=== PATIENT | female | born 1960 | race Caucasian/White ===

== ENCOUNTER 2025-07-27 15:23 | Observation (INO) | payer BC, SELFPAY ==
[2025-07-27] VITALS (8 sets, daily range): BP systolic 132–160; BP diastolic 74–114; PULSE 76–89; RESP 16–18; TEMP 36.4–36.6; O2SAT 98–99; BMI 36.3; BMI 36.2
--- NOTE | 2025-07-27 15:52 | EKG12_ITS ---
Test Reason : DIZZY Blood Pressure : */* mmHG Vent. Rate : 88 BPM Atrial Rate : 88 BPM P-R Int : 136 ms QRS Dur : 74 ms QT Int : 384 ms P-R-T Axes : 48 8 24 degrees QTcB Int : 464 ms Normal sinus rhythm Nonspecific ST abnormality Abnormal ECG Confirmed by Jeovany Carrillo ([id number]), editor department HIRAL LESLIE ([id number]) on 07/28/2025 1:47:19 PM Referred By: Confirmed By: Jeovany Carrillo
--- NOTE | 2025-07-27 15:53 | EX.ED.DYSGE1 ---
HPI History of Present Illness Chief Complaint: Dizziness Detail of Chief Complaint: Dizziness Informant: patient Narrative Narrative: Patient presents the emergency department complaint of dizziness that started 2 nights ago. Patient states that she has a history of vertigo. She rolled over in bed and had sudden onset of symptoms. She had episodes of vomiting associated with it. Since that time she cannot get comfortable. She spoke with her primary care physician in [place] as she is traveling here from there. She was told to take some [id number] meclizine which she did not it has not helped her. She continues to complain of spinning sensation when turning her head. Patient attempted to do the Ron maneuver twice at home without success. She tells me she cannot lay flat. Also tells me she is been having a headache for about a week. She does have history of ocular migraines and she has had some flashing lights at times in her left eye. Patient also complaining of some chest discomfort which she thinks is related to her anxiety. Patient has history of hypertension as well as high cholesterol. Also recent history of breast cancer with radiation therapy and hormone therapy. [facility] Medical History (Updated 07/27/25 @ 19:[address] Erika Garcia, ) Chronic kidney disease Gastric reflux Panic anxiety syndrome Anxiety HX: breast cancer Hypertension Allergy/AdvReac Type Severity Reaction Status Date / Time azithromycin Allergy Rash Verified 07/27/25 15:28 Food Allergies: Uncoded Allergy Anaphylaxis Verified 07/27/25 15:28 honey Allergy Anaphylaxis Verified 07/27/25 15:28 Sulfa (Sulfonamide Allergy Anaphylaxis Verified 07/27/25 15:28 Antibiotics) tetracycline Allergy Rash Verified 07/27/25 15:28 Social History Smoking Status: Former smoker ROS ROS ED Review of Systems ROS Unobtainable: other Constitutional Constitutional ED: Reports lethargy; Denies chills, fever(s), sweats or weight loss Eyes Eyes: Reports change in vision; Denies blurry vision or diplopia ENT ENT ED: Denies rhinorrhea or sore throat Cardiovascular Cardiovascular: Reports chest pain; Denies orthopnea or racing heartbeat Respiratory/Chest Respiratory/Chest: Denies cough, dyspnea, dyspnea on exertion, orthopnea or sputum Gastrointestinal Gastrointestinal: Denies abdominal pain, diarrhea, nausea or vomiting Genitourinary Genitourinary ED: Denies dysuria, hematuria or urinary frequency Musculoskeletal Musculoskeletal: Denies arthralgias, back pain, myalgias or neck pain Integumentary Denies abscess, Abrasions or rash Neurologic Neurologic: Reports headache(s) and other Details: Dizziness ; Denies weakness Psychiatric Psychiatric: Denies anxiety, depression or suicidal thoughts Endocrine Endocrinology: Denies polydipsia, polyphagia or polyuria Hematologic/Lymphatic Hematologic/Lymphatic: Denies easy bleeding, easy bruising or lymphadenopathy Allergic/Immunologic Allergic/Immunologic ED: Denies mouth swelling, tongue swelling or urticaria EXAM Physical Exam Const Vital Signs: 07/27/25 15:29 07/27/25 17:24 Temperature 97.7 F L Temperature Source Temporal Pulse Rate 89 80 Respiratory Rate 18 17 Blood Pressure 160/90 H 138/114 H Blood Pressure Mean 113 122 Pulse Ox 98 Oxygen Delivery Method Room Air Positive well nourished and well developed General Appearance ED: well developed and NAD HEENT Reports TM's clear and moist mucous membranes normocephalic and atraumatic; Negative for trauma or tenderness Tympanic Membrane ED: Yes TM's clear Eyes PERRL and EOMs intact bilaterally General Eye ED: Negative for pale conjunctiva or scleral icterus Neck no lymphadenopathy, supple and no JVD General: Negative for tenderness Chest Wall inspection of chest normal and palpation of chest normal Chest: Negative for tenderness Resp normal respiratory effort and clear to auscultation bilaterally Effort and Inspection: Negative for respiratory distress or pain with movement Auscultation: Negative for rhonchi, wheezes or diminished lung sounds Cardio regular rate, regular rhythm, S1 normal heart sound, S2 normal heart sound and no murmurs Peripheral Pulses: pulses 2+ throughout GI normal to inspection, nondistended, normoactive bowel sounds, soft to palpation, non-tender, non-distended and no masses Back/Spine no CVA tenderness and no thoracic nor lumbar tenderness Extremity normal to inspection General Extremety ED: Negative for edema General Extremity: Negative for edema Neuro oriented x3, CN's II-XII intact bilaterally, no sensory deficits noted and gait normal Neuro Narrative: Finger-nose and heel woody testing within normal limits. Did not tolerate Hallpike maneuver. Do not appreciate significant nystagmus with just eye movement to the left or right. No focal deficits Sensorium / Orientation: awake, alert, oriented to person, oriented to place and oriented to time Motor Exam: strength 5/5 throughout and strength abnormal Psych mental status grossly normal Skin no rashes or lesions noted and no wounds MDM MDM MDM Narrative Medical decision making narrative: Patient presents with vertigo symptoms with history of vertigo. Attempted Ron maneuver at home unsuccessfully as well as [id number] meclizine and continues to be symptomatic with dizziness and nausea. Clinically she looks well. No focal deficits on exam. Has had a headache also for about a week. CBC with differential count of 7.6 with hemoglobin 14 and platelet count of 195. Chemistries unremarkable. EKG showed a sinus rhythm with ventricular rate of of [address] changes. Troponin normal at less than 6. CT scan of the brain without contrast unremarkable. She was medicated with Ativan 1 mg IV and Zofran 4 mg IV. She had some symptom relief but continues to feel off balance. Will discussed with hospitalist to evaluate patient for admission. Lab Data Attestation: I reviewed the patient's lab results. Labs: Laboratory Results - last 24 hr 07/27/25 16:36 WBC 7.6 RBC 4.79 Hgb 14.2 Hct 42.5 MCV 88.7 MCH 29.6 MCHC 33.4 RDW Std Deviation 41.6 RDW Coeff of Seven 12.7 Plt Count 195 MPV 12.2 H Immature Gran % (Auto) 0.100 Neut % (Auto) 72.3 H Lymph % (Auto) 19.2 [place] % (Auto) 7.5 Eos % (Auto) 0.5 Baso % (Auto) 0.4 Absolute Neuts (auto) 5.5 Absolute Lymphs (auto) 1.46 Nucleated RBC % 0 Sodium 141 Potassium 3.9 Chloride 105 Carbon Dioxide 22.1 Anion Gap 14 BUN 7 Creatinine 0.98 Estim Creat Clear Calc 69.97 Est GFR (MDRD) Non-Af 65 BUN/Creatinine Ratio 6.7 L Glucose 100 H Calcium 10.0 Troponin T High Sens < 6 Radiography Diagnostic Testing: Clinical Impression(s) from Imaging Studies Brain CT 07/27/25 16:50 IMPRESSION: No acute intracranial process. Reading Location: [facility] [address] EKG Initial EKG: Attestation: I personally reviewed and interpreted this EKG as follows: Comments: Sinus rhythm with rate of [address] changes Discharge Plan Dx/Rx/DC Orders Clinical Impression: Vertigo, Dizziness Disposition Disposition: Acute Care Hospital [facility]
[2025-07-27] MEDS: 0.9% Normal Saline (1000mL) 1,000 ML 150 ML IV (16:43)
--- NOTE | 2025-07-27 16:50 | CT_ITS ---
PROCEDURE: BRAIN/HEAD WITHOUT CONTRAST 07/27/2025 REASON FOR EXAM: HEADACHE, DIZZINESS TECHNIQUE: Procedure Code: CTBR Modality: CT Procedure: BRAIN/HEAD WITHOUT CONTRAST Coronal and Sagittal reconstruction series were provided. One or more dose reduction techniques were used (e.g., Automated exposure control, adjustment of the mA and/or kV according to patient size, use of iterative reconstruction technique. RADIATION DOSE SUMMARY: DLP: 961 mGycm COMPARISON: None FINDINGS: There is no acute infarct, intracranial hemorrhage, or mass effect. There is no hydrocephalus or significant midline shift. There is mild chronic microvascular ischemic changes and mild parenchymal volume loss. No acute, depressed calvarial fractures. No large scalp hematomas. The paranasal sinuses are clear. Left lens surgery. CT/Brain/Head without Contrast IMPRESSION: No acute intracranial process. Reading Location: [id number]
[2025-07-27 17:02] LABS: Hematocrit 42.5 % (37-47); Hemoglobin 14.2 g/dL (12.0-15.0); Immature Granulocytes Count 0.010 X10^3/uL (0.0-0.0); Mean Corp Hgb Conc 33.4 g/dL (32-36); Mean Corpuscular Volume 88.7 fL (81-99); Mean Platelet Vol. 12.2 fl (6.2-12.0); NRBC Flagged by Analyzer 0 % (0-5); Platelet Count 195 K/mm3 (150-450); RBC Distribution Width CV 12.7 % (11.6-14.6); RBC Distribution Width SD 41.6 fl (35.1-43.9); Red Blood Count 4.79 M/mm3 (4.2-5.4); White Blood Count 7.6 K/mm3 (4.4-11.0)
[2025-07-27 17:24] LABS: Anion Gap 14 (5-15); BUN 7 mg/dL (4-19); BUN/Creat Ratio 6.7 RATIO (10-20); Calcium,Total 10.0 mg/dL (7.6-11.0); Carbon Dioxide 22.1 mmol/L (21.0-32.0); Chloride 105 mmol/L (98-108); Estimated Creatinine Clearance 69.97 ml/min (50-250); Glucose 100 mg/dL (70-99); Potassium 3.9 mmol/L (3.3-5.1)
[2025-07-27 17:53] LABS: Troponin T High Sensitivity < 6 ng/L (<=14)
[2025-07-27 19:43] LABS: Troponin T High Sens 2 HR < 6 ng/L (<=14)
--- NOTE | 2025-07-27 20:05 | PCM.HP.STD ---
HPI - General General Date of Admission: 07/27/25 Date of Service: 07/27/25 Chief Complaint: Vertigo HPI Narrative CHERYL PAUL, is a 64-year-old female with a history of breast cancer status post radiation and hormone therapy, hypertension, vertigo, ocular migraines, anxiety who presented [facility] ED 07/27/2025 due to vertiginous symptoms. She lives in [place] and is here visiting due to a . Reportedly has a history of vertigo and this time the dizzy feeling started 2 days ago, she rolled over in bed had sudden onset of symptoms and 2 episodes of vomiting associated with this. Spoke with her primary care physician and she took some [id number] meclizine which did not provide significant relief and she continued to have the spinning sensation when turning her head, patient attempted to do Ron maneuver at home without success prompting her to come to the ED. She also noted having left-sided headache for about a week with left ocular migraine as well which is usually fairly fleeting but has been more consistent recently. In the ED temp 98, heart rate 89, blood pressure 160/90, respiratory 18 pulse ox 98% on room air. CBC with normal white count and hemoglobin, BMP with a BUN of 7 and creatinine 0.98, glucose 100, troponin less than [address] head with no acute intracranial process. Patient was given Ativan with some improvement in symptoms however still would feel dizzy when moving her head so hospitalist contacted for admission for vertigo. Patient evaluated at bedside, reports that for about a week she has had a left-sided headache and has been having vision changes in the periphery of her left eye today, has a history of ocular migraines, does endorse that 2 days ago when she rolled over she began to have the vertiginous symptoms. Sitting up in the ED she reports she feels a little bit dizzy just sitting there but not the spinning sensation but she knows if she moves her head she will have it again. Feeling off balance. Notes some nausea but no vomiting today but did have vomiting at the onset of symptoms. Denies any focal neurodeficits. No fevers or chills. Does note earlier she was feeling very anxious and had some pain in the center of her chest that is completely gone now, not presently having any pain complaints [facility] Medical History (Updated 07/27/25 @ 20:[address] Patrica Jaffe MD) Anxiety Chronic kidney disease Gastric reflux HX: breast cancer Hypertension Panic anxiety syndrome Home Medications Medication Instructions Recorded Last Taken Type cholecalciferol (vitamin D3) 50 50 mcg PO DAILY 07/27/25 Unknown History mcg (2,000 unit) tablet citalopram 20 mg tablet 20 mg PO DAILY 07/27/25 Unknown History dexlansoprazole 60 mg 60 mg PO DAILY 07/27/25 Unknown History capsule,biphase delayed release metoprolol succinate 50 mg mg PO 07/27/25 Unknown History tablet,extended release 24 hr olmesartan 20 mg tablet 20 mg PO DAILY 07/27/25 Unknown History rosuvastatin 20 mg tablet 20 mg PO QHS 07/27/25 Unknown History Allergy/AdvReac Type Severity Reaction Status Date / Time azithromycin Allergy Rash Verified 07/27/25 15:28 Food Allergies: Uncoded Allergy Anaphylaxis Verified 07/27/25 15:28 honey Allergy Anaphylaxis Verified 07/27/25 15:28 Sulfa (Sulfonamide Allergy Anaphylaxis Verified 07/27/25 15:28 Antibiotics) tetracycline Allergy Rash Verified 07/27/25 15:28 Family History (Updated 07/27/25 @ 20:49 by Koffi Hudson) Father Hypertension CVA (cerebral vascular accident) Esophageal cancer Mother Hypertension Social History Smoking Status: Former smoker ROS ROS Narrative General: Denies fever/chills HENT: Left-sided headache, denies stuffy nose, denies sore throat EYES: Has some changes in peripheral vision on left eye Resp: Denies cough, denies shortness of breath Cardiac: Denies chest pain currently GI: Denies abdominal pain, denies changes in bowel, some nausea, vomiting and onset of symptoms : Denies changes in urination Extremity: Denies swelling MSK: Denies weakness Neuro: Denies any numbness/tingling Heme: Denies any bleeding or bruising Skin: Denies rashes Psychiatric: No complaints voiced Vital Signs Vital Signs Vital Signs: 07/27/25 15:29 07/27/25 17:24 07/27/25 19:00 Temperature 97.7 F L Temperature Source Temporal Pulse Rate 89 80 77 Respiratory Rate 18 17 18 Blood Pressure 160/90 H 138/114 H 132/85 H Blood Pressure Mean 113 122 100 Pulse Ox 98 Oxygen Delivery Method Room Air 07/27/25 19:43 Temperature 98 F Temperature Source Pulse Rate 77 Respiratory Rate 18 Blood Pressure 132/85 H Blood Pressure Mean 100 Pulse Ox 99 Oxygen Delivery Method Weight Weight: 102.1 kg Body Mass Index (BMI) 36.3 Physical Exam Narrative General: Alert, oriented, no apparent distress HEENT: Atraumatic, normocephalic Eyes: Anicteric, normal conjunctiva, extraocular movements intact, no rotary or sustained nystagmus, very minimal difference in pupil size with the left being slightly bigger than right but both dilate appropriately Neck: Supple Respiratory: Clear to auscultation bilaterally, normal respiratory effort Cardiovascular: Regular rate and rhythm GI: Soft, nontender, nondistended Extremities: No edema Musculoskeletal: Strength 5 out of 5 in right upper extremity, 5 out of 5 left upper extremity, 5 out of 5 right lower extremity, 5 out of 5 left lower extremity Neuro: No overt focal neurological deficits, cranial nerves II through XII intact, [id number] without significant difficulty bilaterally Skin: No rashes appreciated Psych: Cooperative Results Lab / Micro Data 07/27/25 16:36 07/27/25 16:36 Labs: Laboratory Results - last 24 hr 07/27/25 16:36: WBC 7.6, RBC 4.79, Hgb 14.2, Hct 42.5, MCV 88.7, MCH 29.6, MCHC 33.4, RDW Std Deviation 41.6, RDW Coeff of Seven 12.7, Plt Count 195, MPV 12.2 H, Immature Gran % (Auto) 0.100, Neut % (Auto) 72.3 H, Lymph % (Auto) 19.2, [place] % (Auto) 7.5, Eos % (Auto) 0.5, Baso % (Auto) 0.4, Absolute Neuts (auto) 5.5, Absolute Lymphs (auto) 1.46, Nucleated RBC % 0, Sodium 141, Potassium 3.9, Chloride 105, Carbon Dioxide 22.1, Anion Gap 14, BUN 7, Creatinine 0.98, Estim Creat Clear Calc 69.97, Est GFR (MDRD) Non-Af 65, BUN/Creatinine Ratio 6.7 L, Glucose 100 H, Calcium 10.0, Troponin T High Sens < 6 07/27/25 18:28: Troponin T Hi Sens 2 Hr < 6 Imaging Radiology Impression Brain CT 07/27/25 16:50 IMPRESSION: No acute intracranial process. Reading Location: [facility] Assessment & Plan Assessment/Plan (1) Vertigo: (2) Migraine: PLAN: Plan # Vertigo -Patient received 1 mg of lorazepam in the ED patient receiving migraine cocktail that will include Reglan and Benadryl which are also possible agents for symptomatic treatment of vertigo -Will then add as needed meclizine -PT consult # Migraine -Patient with left-sided headache for the past week with left-sided ocular symptoms, does have history of ocular migraines -Has only tried taking Tylenol or ibuprofen as needed -Will give Reglan, Benadryl, Toradol, Decadron, qtc [phone] #Hypertension - Will hold olmesartan to allow room for medications for treatment purposes -Can continue metoprolol #GERD -Continue PPI #Depression/anxiety -Continue home medications #DVT ppx: SCDs Patrica Jaffe MD Charges/Coding Visit Charges Inpatient E&M: 32442 Init Hosp L2
[2025-07-27] MEDS: Metoprolol(XL)Succ 25 MG Tablet PO (22:07)
[2025-07-27] MEDS: DiphenhydrAMINE 50 MG/ML Syringe 25 MG IV (22:07)
[2025-07-27] MEDS: 0.9% Normal Saline (1000mL) 1,000 ML 75 ML IV (22:08)
[2025-07-27 23:22] LABS: Troponin T High Sens 4 HR < 6 ng/L (<=14)
[2025-07-28 03:40] VITALS: BP 136/77; PULSE 76; RESP 16; TEMP 36.4; O2SAT 94
[2025-07-28 07:18] LABS: Hematocrit 39.9 % (37-47); Hemoglobin 12.9 g/dL (12.0-15.0); Immature Granulocytes Count 0.020 X10^3/uL (0.0-0.0); Mean Corp Hgb Conc 32.3 g/dL (32-36); Mean Corpuscular Volume 89.1 fL (81-99); Mean Platelet Vol. 11.7 fl (6.2-12.0); NRBC Flagged by Analyzer 0 % (0-5); Platelet Count 185 K/mm3 (150-450); RBC Distribution Width CV 13.0 % (11.6-14.6); RBC Distribution Width SD 42.4 fl (35.1-43.9); Red Blood Count 4.48 M/mm3 (4.2-5.4); White Blood Count 5.5 K/mm3 (4.4-11.0)
[2025-07-28 07:44] LABS: Anion Gap 11 (5-15); BUN 9 mg/dL (4-19); BUN/Creat Ratio 10.1 RATIO (10-20); Calcium,Total 9.4 mg/dL (7.6-11.0); Carbon Dioxide 20.4 mmol/L (21.0-32.0); Chloride 108 mmol/L (98-108); Estimated Creatinine Clearance 73.61 ml/min (50-250); Glucose 149 mg/dL (70-99); Potassium 4.6 mmol/L (3.3-5.1)
--- NOTE | 2025-07-28 08:16 | PN.HOSP_ITS ---
Reason for Visit Chief Complaint: Vertigo Subjective Subjective still with left lateral visual field blurriness. headache improved. still with dizziness worse with change in position. Objective Data Objective Data Vital Signs: Vital Signs Temp Pulse Resp BP Pulse Ox O2 Del Method 36.4 C L 76 16 136/77 H 94 CPAP 07/28/25 03:40 07/28/25 03:40 07/28/25 03:40 07/28/25 03:40 07/28/25 03:40 07/28/25 03:40 Oxygen Delivery Method CPAP Weight: 101.8 kg Body Mass Index (BMI) 36.2 Intake & Output: Intake and Output for Last 24 Hours 07/26/25 07/27/25 07/28/25 23:59 23:59 23:59 Intake Total 675 / 675 Balance 675 / 675 Lab / Micro Data 07/28/25 06:59 07/28/25 06:59 Labs: Laboratory Results - last 24 hr 07/27/25 16:36: WBC 7.6, RBC 4.79, Hgb 14.2, Hct 42.5, MCV 88.7, MCH 29.6, MCHC 33.4, RDW Std Deviation 41.6, RDW Coeff of Seven 12.7, Plt Count 195, MPV 12.2 H, Immature Gran % (Auto) 0.100, Neut % (Auto) 72.3 H, Lymph % (Auto) 19.2, [place] % (Auto) 7.5, Eos % (Auto) 0.5, Baso % (Auto) 0.4, Absolute Neuts (auto) 5.5, Absolute Lymphs (auto) 1.46, Nucleated RBC % 0, Sodium 141, Potassium 3.9, Chloride 105, Carbon Dioxide 22.1, Anion Gap 14, BUN 7, Creatinine 0.98, Estim Creat Clear Calc 69.97, Est GFR (MDRD) Non-Af 65, BUN/Creatinine Ratio 6.7 L, G lucose 100 H, Calcium 10.0, Troponin T High Sens < 6 07/27/25 18:28: Troponin T Hi Sens 2 Hr < 6 07/27/25 22:30: Troponin T Hi Sens 4Hr < 6 07/28/25 06:59: WBC 5.5, RBC 4.48, Hgb 12.9, Hct 39.9, MCV 89.1, MCH 28.8, MCHC 32.3, RDW Std Deviation 42.4, RDW Coeff of Seven 13.0, Plt Count 185, MPV 11.7, Immature Gran % (Auto) 0.400, Neut % (Auto) 79.9 H, Lymph % (Auto) 17.3 L, [place] % (Auto) 2.2, Eos % (Auto) 0.0, Baso % (Auto) 0.2, Absolute Neuts (auto) 4.4, Absolute Lymphs (auto) 0.95, Nucleated RBC % 0, Sodium 139, Potassium 4.6, Chloride 108, Carbon Dioxide 20.4 L, Anion Gap 11, BUN 9, Creatinine 0.93, Estim Creat Clear Calc 73.61, Est GFR (MDRD) Non-Af 68, BUN/Creatinine Ratio 10.1, G lucose 149 H, Calcium 9.4 Radiography Diagnostic Testing: Radiology Impression Brain CT 07/27/25 16:50 IMPRESSION: No acute intracranial process. Reading Location: [facility] Physical Exam Const alert and no apparent distress HEENT head/scalp atraumatic and moist oral mucous membranes HEENT Narrative: Right lateral nystagmus. Patient with impaired visual perception in the left lateral eye field. Resp normal respiratory effort and no retractions Assessment & Plan Assessment/Plan (1) Vertigo: (2) Migraine: PLAN: Plan Vertigo * Patient received 1 mg of lorazepam in the ED patient receiving migraine cocktail that will include Reglan and Benadryl which are also possible agents for symptomatic treatment of vertigo-Will then add as needed meclizine-PT consult Migraine * -Patient with left-sided headache for the past week with left-sided ocular symptoms, does have history of ocular migraines * -Has only tried taking Tylenol or ibuprofen as needed * -Will give Reglan, Benadryl, Toradol, Decadron, qtc 464 Visual changes * Patient usually gets scotoma with her migraines and did have that but she has blurry vision in the left lateral visual field. Will check an MRI. Patient will need follow-up with ophthalmology as outpatient. Hypertension * - Will hold olmesartan to allow room for medications for treatment purposes * -Can continue metoprolol GERD * Continue PPI Depression/anxiety * Continue home medications DVT ppx: SCDs Discussed with the patient's cousin at bedside. Charges/Coding Visit Charges Inpatient E&M: 48408 Subs Hosp L2
[2025-07-28 08:29] VITALS: BP 139/85; PULSE 67; RESP 18; TEMP 36.2; O2SAT 95
[2025-07-28] MEDS: 0.9% Normal Saline (1000mL) 1,000 ML 75 ML IV (11:01)
--- NOTE | 2025-07-28 12:05 | MRI_ITS ---
PROCEDURE: BRAIN WITHOUT CONTRAST 07/28/2025 REASON FOR EXAM: BLURRED VISION LEFT EYE. TECHNIQUE: Procedure Code: MRIBR Modality: MR Procedure: BRAIN WITHOUT CONTRAST Multiplanar and multisequence images were obtained. COMPARISON: CT head dated 07/27/2025. FINDINGS: Evidence of left cataract surgery. Please correlate clinically. Otherwise the orbits and their contents appear unremarkable. The globes are appropriately shaped. The extraocular muscles are symmetric bilaterally. The bilateral optic nerves are normal in size and signal. The optic chiasm appears unremarkable. The retrobulbar fat is unremarkable bilaterally. Otherwise the brain parenchyma appears unremarkable. The akers-white matter differentiation is appropriate. The ventricles are normal in size and configuration. No midline shift. The midline structures are intact, specifically the corpus callosum, septum pellucidum, pituitary gland, and cerebellar vermis. The cervicomedullary junction appears unremarkable. The paranasal sinuses and mastoid air cells are clear. Diffusion-weighted images demonstrate no restricted diffusion. Small nodular foci of signal abnormality are noted within the soft tissues of the scalp, likely representing small sebaceous cysts. MRI/Brain without Contrast IMPRESSION: 1. Evidence of left cataract surgery. Please correlate clinically. Otherwise unremarkable MRI of the orbits. 2. Otherwise unremarkable MRI of the brain. Reading Location: [id number]
[2025-07-28 13:46] VITALS: BP 160/77; PULSE 85; RESP 18; TEMP 36.3; O2SAT 99
[2025-07-28 17:15] VITALS: BP 144/79; PULSE 70; RESP 16; TEMP 36.6; O2SAT 97
[2025-07-28 20:41] VITALS: BP 150/79; PULSE 71; RESP 18; TEMP 36.1; O2SAT 100
[2025-07-28 20:46] VITALS: BP 150/79; PULSE 71
[2025-07-28] MEDS: Metoprolol(XL)Succ 25 MG Tablet PO (20:46)
[2025-07-29 03:00] VITALS: BP 152/100; PULSE 65; RESP 18; TEMP 36; O2SAT 98
[2025-07-29 08:23] VITALS: BP 148/100; PULSE 60; RESP 16; TEMP 36.5; O2SAT 97
[2025-07-29] MEDS: Senna/Docusate Sodium 1 Tablet 2 TABLET PO (08:37)
--- NOTE | 2025-07-29 08:38 | PN.HOSP_ITS ---
Reason for Visit Chief Complaint: Vertigo Subjective Subjective Still feeling dizzy. Still with headache and blurred vision. Objective Data Objective Data Vital Signs: Vital Signs Temp Pulse Resp BP Pulse Ox O2 Del Method 36.5 C L 60 16 148/100 H 97 Room Air 07/29/25 08:23 07/29/25 08:23 07/29/25 08:23 07/29/25 08:23 07/29/25 08:23 07/29/25 08:23 Oxygen Delivery Method Room Air Weight: 101.8 kg Body Mass Index (BMI) 36.2 Intake & Output: Intake and Output for Last 24 Hours 07/27/25 07/28/25 07/29/25 23:59 23:59 23:59 Intake Total 675 / 675 2716.25 / 3116.25 400 / 400 Balance 675 / 675 2716.25 / 3116.25 400 / 400 Lab / Micro Data 07/28/25 06:59 07/28/25 06:59 Radiography Diagnostic Testing: Radiology Impression Brain MRI 07/28/25 12:05 IMPRESSION: 1. Evidence of left cataract surgery. Please correlate clinically. Otherwise unremarkable MRI of the orbits. 2. Otherwise unremarkable MRI of the brain. Reading Location: [facility] Physical Exam Const alert and no apparent distress HEENT head/scalp atraumatic and moist oral mucous membranes Resp normal respiratory effort Extremity normal to inspection and full ROM Neuro Sensorium / Orientation: awake and alert Assessment & Plan Assessment/Plan (1) Vertigo: (2) Migraine: PLAN: Plan Vertigo * Patient received 1 mg of lorazepam in the ED patient receiving migraine cocktail that will include Reglan and Benadryl which are also possible agents for symptomatic treatment of vertigo- * Ongoing. Patient does not tolerate meclizine so we will try lorazepam orally. Migraine * Patient with left-sided headache for the past week with left-sided ocular symptoms, does have history of ocular migraines * Has only tried taking Tylenol or ibuprofen as needed * Will give Reglan, Benadryl, Toradol, * Recommended patient utilize ketorolac. Has ordered but has not been taking it. Visual changes * Patient usually gets scotoma with her migraines and did have that but she has blurry vision in the left lateral visual field. * MRI brain negative * Patient will need follow-up with ophthalmology as outpatient. Hypertension * - Will hold olmesartan to allow room for medications for treatment purposes * -Can continue metoprolol GERD * Continue PPI Depression/anxiety * Continue home medications DVT ppx: SCDs Charges/Coding Visit Charges Inpatient E&M: 00867 Subs Hosp L2
--- NOTE | 2025-07-29 09:31 | CASEMGMT ---
Social Work Per imaging pt negative for stroke, therefore PHQ9 not completed. SAFIA Navarrete
[2025-07-29 14:23] VITALS: BP 142/83; PULSE 67; RESP 14; TEMP 36.6; O2SAT 97
--- NOTE | 2025-07-29 16:00 | CASEMGMT ---
BRENNEN OSCAR NOTE: RN CM to room. Pt resting in bed. Introduced self and role. Pt lives in [place] w/her , indep @ baseline. She states she was in [place] visiting her cousin. She plans to discharge back to her cousins. Her will be coming to [place] on Saturday and they plan to return to [place] on Saturday. She states she has been up w/use of walker since admission d/t unsteadiness from vertigo. She does not have a walker @ home. She would like to get a walker @ discharge if she is still having dizziness/unsteadiness. Verbal review of DME co's & she chose [employer]. Discussed PT/vestibular therapy and she is interested in a script for this @ discharge. She states there is a location near where she lives that does OP therapy. She would like to have therapy work w/her while @ [facility] and educate her on exercises she can do on her own. Therapist, Karen, made aware. Pt would like to get any new Rx's from [facility] retail pharmacy @ discharge. [facility] updated. Pt denies having other discharge needs or concerns. Leighton YOUNGBLOODN BRENNEN CM
[2025-07-29 21:16] VITALS: BP 142/84; PULSE 65; RESP 16; TEMP 36.7; O2SAT 96
[2025-07-29 21:59] VITALS: BP 142/84; PULSE 65
[2025-07-29] MEDS: Metoprolol(XL)Succ 25 MG Tablet PO (21:59)
[2025-07-29 22:00] VITALS: PULSE 65
[2025-07-30 05:00] VITALS: BP 177/96; PULSE 64; RESP 16; TEMP 36.7; O2SAT 99
--- NOTE | 2025-07-30 08:33 | PN.HOSP_ITS ---
Reason for Visit Chief Complaint: Vertigo Subjective Subjective in morning, was feeling better, but had difficulty with dizziness when turning her head to left. Though had been up. Awaiting to see therapy for Ron manuever. In afternoon, felt worse after Ron manuever, migrain worse, still with blurred vision in left lateral visual field of left eye. Objective Data Objective Data Vital Signs: Vital Signs Temp Pulse Resp BP Pulse Ox O2 Del Method 36.7 C 64 16 177/96 H 99 Room Air 07/30/25 05:00 07/30/25 05:00 07/30/25 05:00 07/30/25 05:00 07/30/25 05:00 07/30/25 05:00 Oxygen Delivery Method Room Air Weight: 101.8 kg Body Mass Index (BMI) 36.2 Intake & Output: Intake and Output for Last 24 Hours 07/28/25 07/29/25 07/30/25 23:59 23:59 23:59 Intake Total 2716.25 / 3116.25 1250 / 1250 Balance 2716.25 / 3116.25 1250 / 1250 Lab / Micro Data 07/28/25 06:59 07/28/25 06:59 Labs: Laboratory Results - last 24 hr 07/29/25 16:44: POC Glucose 82 07/29/25 21:56: POC Glucose 84 07/30/25 06:52: POC Glucose 83 Physical Exam Const alert and no apparent distress Constitutional Narrative: up in chair. HEENT head/scalp atraumatic and moist oral mucous membranes HEENT Narrative: diminished perception in left eye left lateral field. intact in both eyes. Resp normal respiratory effort and no retractions Psych affect normal Assessment & Plan Assessment/Plan (1) Vertigo: (2) Migraine: PLAN: Plan Vertigo * Patient received 1 mg of lorazepam in the ED patient receiving migraine cocktail that will include Reglan and Benadryl which are also possible agents for symptomatic treatment of vertigo- * Ongoing. Patient does not tolerate meclizine so we will try lorazepam orally. * Ron maneuver performed 07/30, and patient is feeling worse. * Still with blurred vision. Recommended patch trial over one eye, to see if it helps. Migraine * Patient with left-sided headache for the past week with left-sided ocular symptoms, does have history of ocular migraines * Has only tried taking Tylenol or ibuprofen as needed * Will give Reglan, Benadryl, Toradol, * Recommended patient utilize ketorolac. Has ordered but has not been taking it. Visual changes * Patient usually gets scotoma with her migraines and did have that but she has blurry vision in the left lateral visual field. * MRI brain negative * Patient will need follow-up with ophthalmology as outpatient. Does not seem to be migraine variant. Cannot rule out issue with her cataract. Hypertension * - Will hold olmesartan to allow room for medications for treatment purposes * -Can continue metoprolol GERD * Continue PPI Depression/anxiety * Continue home medications DVT ppx: SCDs Patient feeling too unwell to go home. Charges/Coding Visit Charges Inpatient E&M: 83830 Subs Hosp L2
[2025-07-30] MEDS: Cholecalciferol (VIT D3) 25 MCG TABLET (1,000 UNITS) 50 MCG PO (09:35)
[2025-07-30 10:00] VITALS: PULSE 65
--- NOTE | 2025-07-30 10:11 | CASEMGMT ---
BRENNEN OSCAR NOTE: Per Dr Bearden, plan is to discharge pt today. BRENNEN OSCAR to room. Pt sitting up in chair. She confirms she would like a walker and a script for OP therapy to use in [place] when she returns. Script for OP PT/vestibular therapy obtained from Dr Bearden and given to pt and instructed on use. Script for FWW also obtained and sent to [facility] via [facility]. Pt denies having other discharge needs or concerns. Leighton WATKINS RN CM
[2025-07-30 10:23] LABS: Mucous, Urine 0 SEEN /hpf (<or=2+); Red Blood Cells-Urine 0 SEEN /hpf (0-5)
[2025-07-30 10:43] LABS: Color, Urine Yellow (Yellow); Glucose, Dipstick Normal (Normal); Ketone-Dipstick Negative (Negative); Leukocyte Esterase-Dipstick 500 /ul (Negative); Nitrite-Dipstick Negative (Negative); Occult Blood-Urine Negative /ul (Negative); Protein-Dipstick 15 mg/dl (Negative); Specific Gravity, Urine 1.010 (1.002-1.030); Urine Bilirubin Dipstick Negative (Negative)
[2025-07-30 10:52] LABS: Squamous Epithelial Cells - UA 0-5 SEEN /hpf (5-10)
[2025-07-30 10:56] VITALS: BP 174/71; PULSE 74; RESP 17; TEMP 36.5; O2SAT 99
--- NOTE | 2025-07-30 16:33 | DS.PCM_ITS ---
Providers Date of Admission: 07/27/25 Primary Care Physician: JESSICA RIVERO Reason For Visit: VERTIGO, MIGRAINE Diagnosis Discharge Diagnosis (1) Vertigo: Status: Acute Code(s): R42 - Dizziness and giddiness (2) Migraine: Status: Acute Code(s): G43.909 - Migraine, unspecified, not intractable, without status migrainosus Plan Vertigo * Patient received 1 mg of lorazepam in the ED patient receiving migraine cocktail that will include Reglan and Benadryl which are also possible agents for symptomatic treatment of vertigo- * Ongoing. Patient does not tolerate meclizine so we will try lorazepam orally. * Ron maneuver performed 07/30, and patient is feeling worse. * Still with blurred vision. Recommended patch trial over one eye, to see if it helps. Migraine * Patient with left-sided headache for the past week with left-sided ocular symptoms, does have history of ocular migraines * Has only tried taking Tylenol or ibuprofen as needed * Will give Reglan, Benadryl, Toradol, * Recommended patient utilize ketorolac. Has ordered but has not been taking it. Visual changes * Patient usually gets scotoma with her migraines and did have that but she has blurry vision in the left lateral visual field. * MRI brain negative * Patient will need follow-up with ophthalmology as outpatient. Does not seem to be migraine variant. Cannot rule out issue with her cataract. Hypertension * - Will hold olmesartan to allow room for medications for treatment purposes * -Can continue metoprolol GERD * Continue PPI Depression/anxiety * Continue home medications Medications at Discharge Home Medications CPAP - Continuous Positive Airway Pressure([facility] INFORMATIONAL USE ONLY) 07/27/25 cholecalciferol (vitamin D3) 50 mcg (2,000 unit) tablet 50 mcg PO DAILY 07/27/25 citalopram 20 mg tablet 20 mg PO DAILY 07/27/25 dexlansoprazole 60 mg capsule,biphase delayed release 60 mg PO DAILY 07/27/25 metoprolol succinate 50 mg tablet,extended release 24 hr 50 mg PO QHS Heart rate control 07/27/25 olmesartan 20 mg tablet 20 mg PO DAILY 07/27/25 rosuvastatin 20 mg tablet 20 mg PO QHS 07/27/25 acetaminophen 325 mg tablet 1,000 mg (3.0769 x 325 mg) PO Q8H PRN PRN Pain 1-10 Or Fever >100.7 #0 tabs 07/30/25 ibuprofen 800 mg tablet 800 mg PO Q8H PRN migraine #30 tabs 07/30/25 lorazepam 1 mg tablet 1 mg PO Q8H PRN PRN Dizziness #12 tabs 07/30/25 Hospital Course Operations None Procedures None Summary of Care Provided Hospital Course: Greater than 30-minute spent on discharge Weight / BMI Weight Weight: 101.8 kg Body Mass Index (BMI) 36.2 ABG / Lab / Microbiology Data 07/28/25 06:59 07/28/25 06:59 Laboratory: Laboratory Results - last 24 hr 07/29/25 16:44: POC Glucose 82 07/29/25 21:56: POC Glucose 84 07/30/25 06:52: POC Glucose 83 07/30/25 09:55: Urine Color Yellow, Urine Clarity Sl. Cloudy, Urine pH 6.0, Ur Specific [place] 1.010, Urine Protein 15 H, Urine Glucose (UA) Normal, Urine Ketones Negative, Urine Occult Blood Negative, Urine Nitrite Negative, Urine Bilirubin Negative, Urine Urobilinogen Normal, Ur Leukocyte Esterase 500 H, Urine RBC 0 SEEN, Urine WBC 5-10 SEEN, Ur Squamous Epith Cells 0-5 SEEN, Urine Bacteria 0 SEEN, Urine Mucus 0 SEEN 07/30/25 12:50: POC Glucose 114 H D/C Instructions DC O2, CPAP, BIPAP Needs Home O2 Discharge instructions: No Meaningful Use Info Meaningful Use Meaningful Use Diagnoses (Choose all that apply): None applicable Discharge Plan Admission Admit Date/Time: 07/27/25 20:06 Primary Reason for Your Visit: Vertigo. Migraine. Attending Provider: Nicola Bearden Primary Care Provider: JESSICA RIVERO Consulting Providers: Patrica Jaffe Instructions Additional Instructions / Restrictions: Try wearing a patch to see if that helps with some of your dizziness. You may alternate eyes throughout the day, few hours on 1 eye, few hours on the other eye while you are up to see if that helps the dizziness. If that does not help then discontinue the patch altogether. Do recommend that you follow-up with your communications attendant in regards to your cataract to see if that may at all be contributing to some of your blurred vision. It was thought that maybe you some your blurred vision may have been due to your migraine but as your migraine got better your vision did not. If you have worsening of your symptoms, return to the emergency room. For your vertigo still felt to be what you have experienced before. Follow-up with therapy to have the vestibular rehab with the Ron maneuvers to see if that helps. We will give you a prescription for lorazepam (Ativan) to see if that helps. Discharge Orders/Prescriptions Prescriptions: New acetaminophen 325 mg Tablet 1,000 mg PO Q8H PRN PRN (Reason: Pain 1-10 Or Fever >100.7) Qty: 0 0RF lorazepam 1 mg Tablet 1 mg PO Q8H PRN PRN (Reason: Dizziness) Qty: 12 0RF ibuprofen 800 mg tablet 800 mg PO Q8H PRN (Reason: migraine) Qty: 30 0RF Rx Instructions: [id number], no prescription required Continued metoprolol succinate 50 mg tablet extended release 24 hr 50 mg PO QHS citalopram 20 mg tablet 20 mg PO DAILY olmesartan 20 mg tablet 20 mg PO DAILY rosuvastatin 20 mg tablet 20 mg PO QHS cholecalciferol (vitamin D3) 50 mcg (2,000 unit) tablet 50 mcg PO DAILY dexlansoprazole 60 mg capsule,biphase delayed releas 60 mg PO DAILY (DME) CPAP - Continuous Positive Airway Pressure([facility] INFORMATIONAL USE ONLY) See Rx Instructions .ROUTE .MEDSUPPLY Patient Comments: CPAP 9 cmH2O DME- [facility] Mask- Medium Full Face Rx Instructions: As directed Referrals / Follow Up: JESSICA RIVERO [Other] JESSICA RIVERO [Other] Disposition Disposition (needs filled in before D/C Order can be placed): Home, Self Care Charges/Coding Visit Charges Inpatient E&M: 49333 Disch Hosp >30min
== END 2025-07-30 17:26 | disposition home or self-care (01) ==
LOC: ED 19:21 → PCU 20:09
PROVIDERS: Admitting Provider Internal Medicine; Emergency Provider Emergency Medicine
DX: R42 Dizziness and giddiness (principal); Z87.891 Personal history of nicotine dependence; G43.909 Migraine, unspecified, not intractable, without status migrainosus; I10 Essential (primary) hypertension; K21.9 Gastro-esophageal reflux disease without esophagitis; E78.00 Pure hypercholesterolemia, unspecified; R07.89 Other chest pain; F32.A Depression, unspecified; F41.9 Anxiety disorder, unspecified; Z79.899 Other long term (current) drug therapy
CPT/HCPCS: 36415; 70450; 70551; 80048; 81001; 82962; 84484; 85025; 93005; 96361; 96374; 96375; 96376; 97110; 97116; 97162; 97802; 99221; 99285; A4216; G0378